=== PATIENT | female | born 1945 | race Caucasian/White ===

== ENCOUNTER → 2019-05-07 13:10 | Outpatient (CLI) | payer MEDICARE, SELFPAY ==
--- NOTE | ~2019-05-07 | DEXA_ITS ---
Bone Density Report Name: Essence Jones Age: 74 Sex: Female Ethnicity: White Date of : 1945 Indication: postmenopausal; screening for osteoporosis; height loss; prior fracture; Referring Provider: ELLIOT ALSTON Study: Bone densitometry was performed. 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 These spine BMD and T score and Z score measurements are not reflective of the patient's true general bone mineral density. Bone Density: Region BMD T-score Z-score Classification AP Spine (L1, L4) 0.886 -1.4 0.9 Osteopenia Femoral Neck (Left) 0.584 -2.4 -0.5 Osteopenia Total Hip (Left) 0.748 -1.6 0.0 Osteopenia Femoral Neck (Right) 0.614 -2.1 -0.2 Osteopenia Total Hip (Right) 0.712 -1.9 -0.3 Osteopenia Total Hip Mean 0.730 -1.8 -0.2 Osteopenia World Health Organization criteria for BMD impression classify patients as: Normal (T-score at or above -1.0), Osteopenia (T-score between -1.0 and -2.5), or Osteoporosis (T-score at or below -2.5). 10-year Fracture Risk: FRAX not reported because: Treated for osteoporosis Clinical Information Provided by Patient: Has had a low trauma fracture Is being treated for osteoporosis Has used the following medications: Fosamax (i.e. alendronate), Vitamin D, Calcium Patient maximum height was 64 Menopause Age: 52 No regular weight bearing exercise Does not regularly consume dairy products Number of children 3 Impression: The patient has low bone mass, based on the Left Femoral Neck T-score. The patient has risk factors, including: previous fracture. 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 These spine BMD and T score and Z score measurements are not reflective of the patient's true general bone mineral density. Discussion: It is important to ask patients whether they are taking their medications and to encourage continued and appropriate compliance with their osteoporosis therapies to reduce fracture risk. It is also important to review their risk factors and encourage appropriate calcium and vitamin D intakes, exercise, fall prevention and other lifestyle measures. Follow-Up: Consider a repeat BMD and Vertebral Fracture Assessment (VFA) exam in 2 years or sooner if medically necessary, to reassess this patient's status. Reported by: GERALD on 05/07/2019 1:48:00 PM. Reviewed, dictated and finalized at location ANitin WALTERS
--- NOTE | ~2019-05-07 | MM_ITS ---
EXAMINATION: MM screening [facility] BI w adama HISTORY: Screening mammogram TECHNIQUE: Bilateral rotated lateral cc views. Craniocaudal and mediolateral oblique 3-D tomosynthesi s images were obtained and synthetic 2-D images were generated. CAD analysis was submitted and interp reted. COMPARISON: No prior mammogram is available for comparison at this institution. BREAST PARENCHYMAL COMPOSITION: The breasts are heterogeneously dense, which may obscure small masses . FINDINGS: Grouped microcalcifications noted anteriorly in the upper right breast; diagnostic right ma mmogram is recommended. Otherwise there is no evidence of suspicious mass, calcification, or architectural distortion to sug gest malignancy in either breast. There are scattered bilateral benign calcifications. IMPRESSION: 1. . Microcalcifications, right breast 2. Diagnostic right mammogram with magnification views is recommended. BI-RADS Category 0: Incomplete: Needs additional imaging evaluation. Reviewed, dictated and finalized at location A. HEATER
== END ==
PROVIDERS: PCP Family Medicine; Visit Provider Obstetrics & Gynecology Gynecology
DX: Z12.31 Encounter for screening mammogram for malignant neoplasm of breast (principal); Z78.0 Asymptomatic menopausal state; M85.88 Other specified disorders of bone density and structure, other site; R92.8 Other abnormal and inconclusive findings on diagnostic imaging of breast; M85.852 Other specified disorders of bone density and structure, left thigh; M85.851 Other specified disorders of bone density and structure, right thigh
CPT/HCPCS: 77063; 77067; 77080

== ENCOUNTER → 2019-05-23 07:39 | Outpatient (CLI) | payer MEDICARE, SELFPAY ==
--- NOTE | ~2019-05-23 | US_ITS ---
EXAMINATION: US abdomen complete EXAM DATE: 05/23/2019 08:50 INDICATION: Dominant pain vomiting and constipation. TECHNIQUE: Multiple grayscale and Doppler images of the complete abdomen were obtained (by a technolo gist who performed the scan) and subsequently reviewed. There is no prior study for comparison. FINDINGS: The abdominal aorta is normal in caliber. Visualized portion IVC is patent. The pancreatic head a nd body are normal in appearance. The pancreatic tail is not visualized. The liver has normal echogenicity and contour. There are no focal liver lesions identified. There is no evidence of intrahepatic biliary duct dilation. Portal venous flow was seen in the hepatopedal , normal direction and has normal Doppler waveform. Common bile duct measures 4 mm, which is normal. The gallbladder wall is normal in thickness, with ex pected amount of distention. No sonographic evidence of pericholecystic fluid. There is no cholelit hiases. Technologist performing exam reports patient did not demonstrate sonographic Carrillo's sign. Please note that this sign is less reliable in patients who have received pain medication. Right kidney: There is normal contour and echogenicity. It measures 9.5 x 3.6 x 4.9 centimeters. T here are no focal renal lesions identified. There is no hydronephrosis. Left kidney: There is normal contour and echogenicity. It measures 10.0 x 3.6 x 5.1 centimeters. Th ere is an anechoic lesion with increased through transmission consistent with cyst measuring 1.2 cm. There is no hydronephrosis. The spleen measures 6.6 centimeters and is morphologically normal. IMPRESSION: 1. Unremarkable complete abdominal ultrasound exam. Reviewed, dictated and finalized at location B. 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
== END ==
PROVIDERS: Visit Provider Family Medicine
DX: R10.9 Unspecified abdominal pain (principal)
CPT/HCPCS: 76700

== ENCOUNTER → 2019-05-29 14:37 | Outpatient (CLI) | payer MEDICARE, SELFPAY ==
--- NOTE | ~2019-05-29 | MM_ITS ---
EXAMINATION: MM diagnostic mammo unilat RT HISTORY: New right breast microcalcifications TECHNIQUE: Additional 3-D tomosynthesis images of were performed and synthetic 2-D images were genera jacques. CAD analysis was submitted and interpreted. COMPARISON: 05/07/2019 bilateral digital screening mammogram 01/26/2017 and 01/26/2018 outside bilateral digital mammogram examinations FINDINGS: Grouped benign-appearing punctate benign microcalcifications are noted anteriorly in the up per outer quadrant of the right breast. Occasional benign calcifications are noted elsewhere. IMPRESSION: 1. Benign calcifications 2. Routine mammographic screening follow-up is recommended. BI-RADS Category 2: Benign finding(s). Reviewed, dictated and finalized at location A. TECHNICIAN
== END ==
PROVIDERS: PCP Family Medicine; Visit Provider Obstetrics & Gynecology Gynecology
DX: R92.8 Other abnormal and inconclusive findings on diagnostic imaging of breast (principal)
CPT/HCPCS: 77065

== ENCOUNTER → 2019-05-31 13:14 | Outpatient (CLI) | payer MEDICARE, SELFPAY ==
--- NOTE | ~2019-05-31 | CT_ITS ---
EXAMINATION: CT abdomen w con DATE: 05/31/2019 13:50 INDICATION: Generalized abdominal pain. TECHNIQUE: Computed tomography (CT) of the abdomen was performed with 100 mL Omnipaque 350 intravenou s contrast. Automated exposure control and iterative reconstruction technique were employed. The dose -length product was 104.28 mGy-cm. COMPARISON: CT abdomen and pelvis 12/27/2014 FINDINGS: The visualized portions of the lung bases demonstrate mild atelectasis. There is mild bronc hiectasis in right middle lobe with mucus plugging. No pleural effusion. Pectus excavatum is noted. T he liver, spleen, gallbladder, pancreas, and adrenal glands are normal. There are cysts in the kidney s measuring up to 12 mm on the left. There are no dilated loops of bowel. There are no pathologically enlarged lymph nodes. There is no free intraperitoneal fluid. There is lumbar levoscoliosis and delfina re spondylosis. IMPRESSION: 1. No etiology for the patient's symptoms. Reviewed, dictated and finalized at location A. [employer] [employer]
[2019-05-31 13:38] LABS: Estimated Glomerular Filt Rate > 60
== END ==
PROVIDERS: PCP Family Medicine; Visit Provider Family Medicine
DX: R10.9 Unspecified abdominal pain (principal)
CPT/HCPCS: 36415; 74160; Q9967

== ENCOUNTER 2019-08-13 07:24 | Outpatient (CLI) | payer MEDICARE, BC, SELFPAY | END 2019-08-13 07:25 | disposition home or self-care (01) | LOC: ANHCOVIDDT 07:25 | PROVIDERS: PCP Family Medicine; Visit Provider Internal Medicine Gastroenterology | DX: Z01.818 Encounter for other preprocedural examination (principal); Z11.59 Encounter for screening for other viral diseases | CPT/HCPCS: 87635; C9803; U0003 ==

== ENCOUNTER 2019-08-15 00:25 | Day surgery (SDC) | payer MEDICARE, BC, SELFPAY ==
[2019-08-10 14:12] VITALS: BMI 18.5
[2019-08-15 07:15] VITALS: BP 136/88; PULSE 92; RESP 16; TEMP 36.4; O2SAT 99; BMI 18.2
[2019-08-15] MEDS: LACTATED RINGERS 1,000 ML 150 ML IV CONT (07:20)
--- NOTE | 2019-08-15 07:22 | WPDGICN ---
Assessment and Plan Assessment and plan (1) Esophagitis: Code(s): K20.9 - Esophagitis, unspecified Status: Acute Assessment and Plan: Patient known to have esophagitis from March 2017. Apparently continues to have difficulties. Current difficulties of poorly localized. This may represent irritable bowel syndrome because complaints are vague. Because of prior esophagitis and not doing well plan is to reassess by EGD to determine if this is healed. Plan to continue pantoprazole on an acid for now. It is possible her abdominal discomfort may be related to medications. Would suggest holding these medications of primary care service deems appropriate. (2) Dementia: Code(s): F03.90 - Unspecified dementia without behavioral disturbance Status: Acute GI Consult Note Consult date/time: 08/15/19 07:22 HPI: Essence Jones is a 74 year old female Seen in evaluation at the request of Dr. Julio Ervin. Patient is referred for abdominal pain. She has a history of dementia and is unable to give a significant history. She is accompanied by her . She apparently complains of epigastric pain but also lobe mid substernal pain worse over the last month. She now has many issues. The knows that she is uncomfortable but has difficulty focusing on the exact location. He states his pain is not related to diet. However her appetite is poor. Her bowel habits reported to be normal. She does have a past history of diverticulosis now identified by colonoscopy in 2018. At that time EGD revealed esophagitis. She has been maintained on pantoprazole 40 mg p.o. once daily. After being seen in the office pantoprazole dose was increased to b.i.d.. After talking with the and patient is uncertain whether this has made any difference. Other medications include the Lantus mine over the last 1 year, REM a real previously. Also on pantoprazole 40 mg p.o. b.i.d. currently. Review of Systems Review of Systems: ROS unobtainable: Yes unobtainable due to mental status PMFSH Social History Social History Gender identity (if verbalized by the patient): Female Meds Home Medications and Allergies Home Medications Medication Instructions Recorded Confirmed Type dicyclomine 10 mg PO TID 08/10/19 08/15/19 History galantamine 4 mg PO BID 08/10/19 08/15/19 History pantoprazole 40 mg PO BID 08/10/19 08/15/19 History Allergies Allergy/AdvReac Type Severity Reaction Status Date / Time Sulfa (Sulfonamide Allergy Verified 08/15/19 07:13 Antibiotics) Vital Signs Vital Signs - 24 hr 08/15/19 07:15 Temperature 36.4 C Pulse Rate 92 Respiratory Rate 16 Blood Pressure 136/88 Pulse Oximetry 99 Exam Narrative: Exam Narrative: Physical exam reveals her to be alert. Vital signs stable. HEENT exam unremarkable. Lungs are clear to auscultation and percussion. Heart is without murmur or extra sounds. Abdominal exam bowel sounds are present soft nontender with no hepatosplenomegaly. Digital external rectal exam in the office is unremarkable.
--- NOTE | 2019-08-15 07:49 | P.PNAN_ITS ---
Anes - Initial Pre Proc Eval Procedure: Operation Date: 08/15/19 08:00 Proposed Procedures p Esophagogastroduodenoscopy - Erik Hollingsworth MD Date/Time: 08/15/19 07:49 Surgeon: Erik Hollingsworth MD Pre Op Diagnosis: Epigastric Pain Patient Data Age: 74 Gender: F Height: 5 ft 2 in Weight: 45.2 kg Last Vital Signs Temp 97.6 F 08/15/19 07:15 Pulse 92 08/15/19 07:15 Resp 16 08/15/19 07:15 BP 136/88 08/15/19 07:15 Pulse Ox 99 08/15/19 07:15 Allergies Allergy/AdvReac Type Severity Reaction Status Date / Time Sulfa (Sulfonamide Allergy Verified 08/15/19 07:13 Antibiotics) Home Medications Medication Instructions Recorded Confirmed Type dicyclomine 10 mg PO TID 08/10/19 08/15/19 History galantamine 4 mg PO BID 08/10/19 08/15/19 History pantoprazole 40 mg PO BID 08/10/19 08/15/19 History Patient hx anesthesia problems: none Family hx anesthesia problems: none [facility] Past Medical History Medical History (Updated 08/15/19 @ 07:48 by Corky Adkins MD) GERD (gastroesophageal reflux disease) Social History Social History Gender identity (if verbalized by the patient): Female Anes - Eval Final PreProcedure Day of Procedure 08/15/19 07:49 Patient weight: normal Lungs: clear to auscultation Airway: Mallampati scale class II Neurological: alert and oriented Last oral intake: >/= 8 hours ASA classification: III Emergent: no Anesthetic plan: proceed Anesthesia type and monitoring: general GIVS and standard monitoring Informed Consent: The patient's anesthetic plan and its attendant risks and benefits were discussed with the patient/family/POA. Questions were solicited and answers provided to the satisfaction of the patient/family/POA.
[2019-08-15] MEDS: BENZOCAINE (*SP) 60 ML SPRAY CAN (HURRICAINE) 1 SPRAY MUCOUS MEM (07:59)
[2019-08-15 08:11] VITALS: BP 100/74; PULSE 72; RESP 17; O2SAT 98
[2019-08-15 08:20] VITALS: BP 104/74; PULSE 68; RESP 16; O2SAT 99
[2019-08-15 08:30] VITALS: BP 112/82; PULSE 74; RESP 16; O2SAT 98
== END 2019-08-15 08:57 | disposition home or self-care (01) ==
PROVIDERS: PCP Family Medicine; Visit Provider Internal Medicine Gastroenterology
PROC: 0DJ08ZZ Inspection of Upper Intestinal Tract, Via Natural or Artificial Opening Endoscopic (ICD-10-PCS; CPT 43235; principal; 2019-08-15 08:00)
DX: R10.13 Epigastric pain (principal); K21.9 Gastro-esophageal reflux disease without esophagitis; F03.90 Unspecified dementia, unspecified severity, without behavioral disturbance, psychotic disturbance, mood disturbance, and anxiety
CPT/HCPCS: 43239; 87081; J2704; J7120